=== PATIENT | male | born 1955 | race Two or more races ===

== ENCOUNTER 2018-07-17 12:45 | Inpatient (IN) | payer OTHER ==
[~2018-07-17] VITALS: Ht 167.6 cm; Wt 72.6 kg
[2018-07-17] MEDS ORDERED: TAMS0.4C PO (12:48)
[2018-07-17] MEDS ORDERED: HORIZANT300 MG PO (12:49)
[2018-08-04] MEDS ORDERED: PANTOPRAZOLE SO40 MG PO (09:06)
[2018-08-04] MEDS ORDERED: TRAM1TAB98 PO (09:07)
[2018-08-04] MEDS ORDERED: Intestinex CAP PO (09:07)
== END 2018-08-04 16:52 | disposition home or self-care (01) | DRG 329 ==
LOC: SURG 07-20 06:10 → O/R 07-20 06:10 → SURH 07-20 07:00 → OB/GYN 07-20 15:35 → O/R 07-20 15:39 → SURH 07-20 21:04 → SURG 07-20 21:50
PROVIDERS: ADMIT Surgery
PROC: 07TC4ZZ Resection of Pelvis Lymphatic, Percutaneous Endoscopic Approach (ICD-10-PCS; 2018-07-20)
PROC: 0DTF4ZZ Resection of Right Large Intestine, Percutaneous Endoscopic Approach (ICD-10-PCS; principal; 2018-07-20 07:00)
PROC: 02HV33Z Insertion of Infusion Device into Superior Vena Cava, Percutaneous Approach (ICD-10-PCS; 2018-07-27)
PROC: BW21ZZZ Computerized Tomography (CT Scan) of Abdomen and Pelvis (ICD-10-PCS; 2018-07-27)
PROC: 3E0F7GC Introduction of Other Therapeutic Substance into Respiratory Tract, Via Natural or Artificial Opening (ICD-10-PCS; 2018-08-01)
DX: D12.2 Benign neoplasm of ascending colon (principal); A41.89 Other specified sepsis; K91.89 Other postprocedural complications and disorders of digestive system; K56.7 Ileus, unspecified; J98.11 Atelectasis; J90 Pleural effusion, not elsewhere classified; I10 Essential (primary) hypertension; D50.8 Other iron deficiency anemias; R50.82 Postprocedural fever; R14.0 Abdominal distension (gaseous); R06.6 Hiccough; A08.8 Other specified intestinal infections; K57.30 Diverticulosis of large intestine without perforation or abscess without bleeding